=== PATIENT | female | born 1990 | race Caucasian/White ===

== ENCOUNTER 2017-06-26 15:59 | Emergency (ER) | payer MEDICAID ==
--- NOTE | 2017-06-26 16:43 | ER Document Report ---
HPI - HPI Pain Level: 3 Notes: Patient is a 26-year-old female with no significant past medical history presents ED complaining of urinary burning, urgency, frequency, and suprapubic pressure 2-3 days. Patient states that she did notice scant hematuria at the end of her urine stream on one occasion. Patient states that she is not worried about any STDs or osteitis at this time, nor she has an insert in place. Patient states that she has had UTIs in the past. She denies any drug allergies. She has not had any flank pain or radiating pain otherwise. Denies vaginal discharge, odor, bleeding, or cramping. Denies any headache, fever, URI, sore throat, chest pain, palpitations, syncope, cough, shortness of breath, wheeze, dyspnea, abdominal pain, nausea/vomiting/diarrhea, urinary retention, loss of control of bowel or bladder, back pain, numbness/ tingling, saddle anesthesia, muscle paralysis/weakness, or rash. - ROS Notes: REVIEW OF SYSTEMS: CONSTITUTIONAL : Denies fever, chills, or sweats. Denies recent illness. EENT: Denies eye, ear, throat, or mouth pain or symptoms. Denies nasal or sinus congestion or discharge. Denies throat, tongue, or mouth swelling or difficulty swallowing. CARDIOVASCULAR: Denies chest pain. Denies palpitations or racing or irregular heart beat. RESPIRATORY: Denies cough, cold, or chest congestion. Denies shortness of breath, difficulty breathing, or wheezing. GASTROINTESTINAL: Denies abdominal pain or distention. Denies nausea, vomiting , or diarrhea. Denies blood in vomitus, stools, or per rectum. Denies black, tarry stools. Denies constipation. GENITOURINARY: see hpi FEMALE GENITOURINARY: Denies vaginal bleeding, heavy or abnormal periods, irregular periods. Denies vaginal discharge or odor. MUSCULOSKELETAL: Denies back or neck pain or stiffness. Denies joint pain or swelling. SKIN: Denies rash, lesions or sores. NEUROLOGICAL: Denies confusion or altered mental status. Denies passing out or loss of consciousness. Denies dizziness or lightheadedness. Denies headache. Denies weakness or paralysis or loss of use of either side. Denies problems with gait or speech. Denies sensory loss, numbness, or tingling. Denies seizures. ALL OTHER SYSTEMS REVIEWED AND NEGATIVE. Dictation was performed using [employer] voice recognition software Past Medical History - Social History Smoking Status: Never Smoker Family History: Reviewed & Not Pertinent Vertical Provider Document - CONSTITUTIONAL Agree With Documented VS: Yes Notes: PHYSICAL EXAMINATION: GENERAL: Well-appearing, well-nourished and in no acute distress. A&Ox4 LUNGS: Breath sounds clear to auscultation bilaterally and equal. No wheezes rales or rhonchi. HEART: Regular rate and rhythm without murmurs, rubs, gallops. ABDOMEN: Soft, nontender, nondistended abdomen. No guarding, no rebound. No masses appreciated. Normal bowel sounds present. No CVA tenderness bilaterally. Musculoskeletal: FROM to passive/active. Strength 5+/5. Extremities: No cyanosis, clubbing, or edema b/l. Peripheral pulses 2+. Capillary refill less than 3 seconds. NEUROLOGICAL: Normal speech, normal gait. Normal sensory, motor exams PSYCH: Normal mood, normal affect. SKIN: Warm, Dry, normal turgor, no rashes or lesions noted. - RESPIRATORY O2 Sat by Pulse Oximetry: 99 Course - Re-evaluation Re-evalutation: 06/26/17 18:26 Patient is an afebrile, well-hydrated, 26-year-old female who presents the ED with a UTI. Vitals are stable. PE is otherwise unremarkable. Low suspicion for any acute abdomen, sepsis, meningitis, obstructing infected renal stone, or other systemic emergent condition at this time. See urinalysis results. Urine cultures pending. I will send her home with a prescription for Keflex to take as directed. Conservative measures for symptoms otherwise. Recheck with your PCM in 3-5 days. Return to the ED with any worsening/concerning symptoms otherwise as reviewed in discharge. Patient is in agreement. - Vital Signs Vital signs: Temp Pulse Resp BP Pulse Ox 98.7 F 88 16 118/54 L 99 06/26/17 16:21 06/26/17 16:21 06/26/17 16:21 06/26/17 16:21 06/26/17 16:21 Discharge - Discharge Clinical Impression: UTI (urinary tract infection) Qualifiers: Urinary tract infection type: site unspecified Hematuria presence: without hematuria Qualified Code(s): N39.0 - Urinary tract infection, site not specified Condition: Stable Disposition: HOME, SELF-CARE Instructions: Cephalexin ([facility]), Urinary Tract Infection ([facility]) Additional Instructions: Push fluids (i.e. water, cranberry juice) Proper hygenic technique Keep the skin clean Tylenol/ibuprofen as needed May use over the counter AZO for burning with urination Take medications as directed F/u with your PCM in 3-5 days for a recheck Consider consult with a Urologist for ongoing/worsening symptoms. Return to the ED with any worsening symptoms and/or development of fever, headache, chest pain, palpitations, syncope, shortness of breath, trouble breathing, abdominal pain, n/v/d, blood in stool/urine, loss of control of bowel /bladder, urinary retention, or other worsening symptoms that are concerning to you. Prescriptions: Cephalexin Monohydrate [Keflex 500 mg Capsule] 500 mg PO BID #14 capsule Referrals: [facility] [Provider Group] - Follow up as needed [facility] [Provider Group] - Follow up as needed
[2017-06-26 17:51] LABS: APPEARANCE,URINE CLEAR; BILIRUBIN,URINE NEGATIVE (NEGATIVE); GLUCOSE, URINE NEGATIVE (NEGATIVE); KETONES,URINE NEGATIVE (NEGATIVE); LEUKOCYTE ESTERASE,URINE TRACE (NEGATIVE); NITRITE,URINE POSITIVE (NEGATIVE); PROTEIN,URINE NEGATIVE (NEGATIVE); URINE SPECIFIC GRAVITY 1.009
[2017-06-26 18:44] VITALS: BP 127/65
== END 2017-06-26 18:44 | disposition home or self-care (01) ==
LOC: ER 15:59
DX: N39.0 Urinary tract infection, site not specified (principal)
CPT/HCPCS: 81001; 87086; 87088; 87186; 99283

== ENCOUNTER 2019-05-30 11:46 | Emergency (ER) | payer MEDICAID, OTHER ==
[2019-05-30] MEDS ORDERED: KETOROLAC TROMETHAMINE INJ/PF 30 MG/1 ML SDV IM ONE (12:17)
[2019-05-30] MEDS ORDERED: DEXAMETHASONE SOD PHOS INJ 10 MG/1 ML VIAL IM ONE (12:18)
--- NOTE | 2019-05-30 12:21 | ER Document Report ---
HPI - HPI Time Seen by Provider: 05/30/19 12:12 Pain Level: 4 Context: Patient is a 28-year-old female who presents to the emergency department with a chief complaint of sore throat. Patient reports her throat started to bother her on Thursday, 2 days ago. Patient reports that her son had similar symptoms which did improve over a few days. Patient reports bilateral ear pain and a productive cough with green sputum. Patient reports she did receive the flu vaccine last Thursday. Patient reports chills and a subjective fever but states she has not checked her temperature with a thermometer at home. Denies nausea, vomiting or diarrhea. Throat pain is worse when swallowing. - CONSTITUTIONAL Constitutional: REPORTS: Fever, Chills - EENT EENT: REPORTS: Sore Throat - REPRODUCTIVE Reproductive: DENIES: : Past Medical History - General Information source: Patient - Social History Smoking Status: Never Smoker Frequency of alcohol use: None Drug Abuse: None Lives with: Family Family History: Reviewed & Not Pertinent Patient has suicidal ideation: No Patient has homicidal ideation: No - Past Medical History Cardiac Medical History: Reports: None Pulmonary Medical History: Reports: None EENT Medical History: Reports: None Neurological Medical History: Reports: None Endocrine Medical History: Reports: None Renal/ Medical History: Reports: None. Denies: Hx Peritoneal Dialysis Malignancy Medical History: Reports: None GI Medical History: Reports: None Musculoskeletal Medical History: Reports None Skin Medical History: Reports None Psychiatric Medical History: Reports: None Traumatic Medical History: Reports: None Infectious Medical History: Reports: None Surgical Hx: Negative Past Surgical History: Reports: Hx Gynecologic Surgery - cyst removed from ovaries Vertical Provider Document - CONSTITUTIONAL Agree With Documented VS: Yes Exam Limitations: No Limitations General Appearance: No Apparent Distress - HEENT HEENT: Atraumatic, Normocephalic, PERRLA Notes: Patient has +1 erythematous tonsils bilaterally. There is exudate bilaterally. Uvula is midline. - NECK Neck: Normal Inspection - RESPIRATORY Respiratory: Breath Sounds Normal, No Respiratory Distress - CARDIOVASCULAR Cardiovascular: Regular Rate, Regular Rhythm - GI/ABDOMEN Gastrointestinal: Abdomen Soft, Abdomen Non-Tender, Normal Bowel Sounds - MUSCULOSKELETAL/EXTREMETIES Musculoskeletal/Extremeties: FROM - NEURO Level of Consciousness: Awake, Alert, Appropriate - DERM Integumentary: Warm, Dry, No Rash Course - Re-evaluation Re-evalutation: 05/30/19 12:20 Patient has not had anything for her throat discomfort today. Will give IM Decadron for her sore throat and inflammation of the tonsils as well as Toradol. Will check for strep. 05/30/19 13:37 I did discuss the results of the strep test with the patient. She states she would like the one-time injection of penicillin. 05/30/19 13:40 Care notes given to patient regarding Strep throat in uzbek. Patient does speak czech but primary language is uzbek. - Vital Signs Vital signs: Temp Pulse Resp BP Pulse Ox 99.7 F 108 H 18 117/56 L 98 05/30/19 11:58 05/30/19 11:58 05/30/19 11:58 05/30/19 11:58 05/30/19 11:58 - Laboratory Laboratory results interpreted by me: 05/30/19 13:37 Laboratory 05/30/19 12:15 Group A Strep Rapid POSITIVE Discharge - Discharge Clinical Impression: Strep pharyngitis Condition: Stable Disposition: HOME, SELF-CARE Additional Instructions: Today you are seen in emergency department for sore throat. You do have strep pharyngitis. If this is due to a bacteria. It does require an antibiotic. You have opted to get the one-time injection. You do not require oral antibiotics to go home with or a prescription. You should start to feel better in the next 2 to 3 days. Take Tylenol and ibuprofen as needed for pain or fever. Please sip frequent clear liquids. Strep Throat Your sore throat is due to the streptococcus germ (strep throat). Strep throat usually makes you feel quite ill with fever and aches, headache, swollen sore throat, and tender bumps under the angles of the jaw. Strep throat requires antibiotic treatment. Although the sore throat may go away by itself, complications such as rheumatic fever, kidney disease, or throat abscess can occur. We usually prescribe antibiotics by mouth. Be sure to take the medicine until it's gone. If you stop early, the strep may come back. If you are vomiting, are severely ill, or can't remember to take pills, we can give you an antibiotic shot. Take acetaminophen or ibuprofen for pain and fever. Sip frequent clear liquids, or use popsicles or ice chips. Anesthetic sprays or lozenges may help. Make sure the air in the room is not too dry. Avoid using decongestants or antihistamines. Call the doctor if there is no improvement in three days, or if you have difficulty breathing, increasing throat pain, high fever, rash, or frequent vomiting.
[2019-05-30] MEDS ORDERED: PENICILLIN G BENZATHINE 1.2 MILLION UNIT/2 ML DISP.SYRIN IM ONE (13:37)
[2019-05-30 14:17] VITALS: BP 99/54
== END 2019-05-30 14:15 | disposition home or self-care (01) ==
LOC: ER 11:46
DX: J02.0 Streptococcal pharyngitis (principal); H92.03 Otalgia, bilateral; R05 Cough; R50.9 Fever, unspecified
CPT/HCPCS: 87880; J1885; J0561; J1100; 96372; 99283

== ENCOUNTER 2019-09-13 16:04 | Emergency (ER) | payer OTHER ==
--- NOTE | 2019-09-13 17:02 | ER Document Report ---
ED Neck/Back Problem - General Chief Complaint: Back Pain Stated Complaint: LOW BACK PAIN Time Seen by Provider: 09/13/19 16:57 Notes: CHIEF COMPLAINT: Low back pain today HPI: 29-year-old female presenting to the emergency department complaining of low back pain and spasm today. Denies specific trauma but states that when she tries to straighten up she feels spasm in the low back. No incontinence of urine or bowel. No dysuria no fever no abdominal pain. No pelvic pain. Denies vaginal bleeding or discharge. ROS: See HPI - all other systems were reviewed and are otherwise negative Constitutional: no fever GI: no vomiting, no diarrhea, no abdominal pain : no dysuria Integumentary: no rash Allergy: no hives Musculoskeletal: no extremity pain or swelling, positive back pain Neurological: no numbness/tingling, no weakness MEDICATIONS: I agree with the patient medications as charted by the RN. ALLERGIES: I agree with the allergies as charted by the RN. PAST MEDICAL HISTORY/PAST SURGICAL HISTORY: Reviewed and agree as charted by RN. SOCIAL HISTORY: Reviewed and agree as charted by RN. FAMILY HISTORY: No significant familial comorbid conditions directly related to patient complaint EXAM: Reviewed vital signs as charted by RN. CONSTITUTIONAL: Alert and oriented and responds appropriately to questions. Well-appearing; well-nourished, mild distress secondary to pain HEAD: Normocephalic; atraumatic EYES: PERRL; Conjunctivae clear, sclerae non-icteric ENT: normal nose; no rhinorrhea; moist mucous membranes NECK: Supple without meningismus; non-tender; no cervical lymphadenopathy, no masses CARD: RRR; no murmurs, no clicks, no rubs, no gallops; symmetric distal pulses RESP: Normal chest excursion without splinting or tachypnea; breath sounds clear and equal bilaterally; no wheezes, no rhonchi, no rales ABD/GI: Normal bowel sounds; non-distended; soft, non-tender, no rebound, no guarding; no palpable organomegaly or masses. BACK: The back appears normal and is minimally tender to palpation across the lower lumbar back, there is no CVA tenderness EXT: Normal ROM in all joints; non-tender to palpation; no cyanosis, no effusions, no edema SKIN: Normal color for age and race; warm; dry; good turgor; no acute lesions noted NEURO: Moves all extremities equally; Motor and sensory function intact. Strength equal 5/5 bilateral lower extremities. Sensation intact and equal bilateral lower extremities. Straight leg raise is negative. No saddle anesthesia on exam. DTRs 2+ intact and equal bilateral lower extremities. PSYCH: The patient's mood and manner are appropriate. Grooming and personal hyg iene are appropriate. MDM: 29-year-old female with low back pain and spasm today. Has mildly reproducible back discomfort, no dysuria. Likely a muscular injury of some type. Will obtain urine and urine if negative anticipate discharge home on anti-inflammatories muscle relaxer, orthopedic follow-up. She has no abdominal or pelvic complaints today. 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 - Related Data Allergies/Adverse Reactions: No Known Allergies Allergy (Unverified 06/26/17 16:03) Past Medical History - Social History Smoking Status: Never Smoker Family History: Reviewed & Not Pertinent Renal/ Medical History: Denies: Hx Peritoneal Dialysis Past Surgical History: Reports: Hx Gynecologic Surgery - cyst removed from ovaries Physical Exam - Vital signs Vitals: Temp Pulse Resp BP Pulse Ox 98.2 F 74 16 123/61 100 09/13/19 16:32 09/13/19 16:32 09/13/19 16:32 09/13/19 16:32 09/13/19 16:32 Course - Re-evaluation Re-evalutation: 09/13/19 17:40 Urine does not show evidence of infection patient is not we will treat as a musculoskeletal injury at this time with return instructions - Vital Signs Vital signs: Temp Pulse Resp BP Pulse Ox 98.2 F 74 16 123/61 100 09/13/19 16:32 09/13/19 16:32 09/13/19 16:32 09/13/19 16:32 09/13/19 16:32 - Laboratory Laboratory results interpreted by me: 09/13/19 17:00 Urine Blood SMALL H Discharge - Discharge Clinical Impression: Low back pain Qualifiers: Chronicity: acute Back pain laterality: bilateral Sciatica presence: without sciatica Qualified Code(s): M54.5 - Low back pain Condition: Stable Disposition: HOME, SELF-CARE Additional Instructions: 1. Warm heat to the lower back twice daily 2. no heavy lifting for 2-3 days 3. medications as prescribed, no driving on muscle relaxers 4. follow up with orthopedics for further evaluation and treatment as needed for any continuing pain or problems, call for appt. 5. return to the ER for any onset of incontinence of urine, fever > 101 or worsening condition 1. Calienta la parte baja de la espalda dos veces al da 2. no levantar objetos pesados ciara 2-3 alba 3. medicamentos segn lo prescrito, no conducir en relajantes musculares 4. seguimiento con ortopedia para dayanara evaluacin y tratamiento adicionales, segn sea necesario para cualquier dolor o problema continuo, solicite malinda. 5. Regrese a la armando de emergencias por cualquier aparicin de incontinencia de orina, fiebre> 101 o empeoramiento de la condicin. Prescriptions: Cyclobenzaprine HCl [Flexeril 10 mg Tablet] 10 mg PO TIDP PRN #15 tab PRN Reason: Naproxen 500 mg PO BID PRN #14 tablet PRN Reason: Referrals: EMERALD SAMPSON MD [ACTIVE STAFF] - Follow up as needed
[2019-09-13 17:35] LABS: APPEARANCE,URINE CLEAR; BILIRUBIN,URINE NEGATIVE (NEGATIVE); COLOR,URINE YELLOW; GLUCOSE, URINE NEGATIVE (NEGATIVE); KETONES,URINE NEGATIVE (NEGATIVE); LEUKOCYTE ESTERASE,URINE NEGATIVE (NEGATIVE); NITRITE,URINE NEGATIVE (NEGATIVE); PROTEIN,URINE NEGATIVE (NEGATIVE); URINE SPECIFIC GRAVITY 1.019; UROBILINOGEN,URINE NEGATIVE mg/dL (<2.0)
[2019-09-13] MEDS ORDERED: NAPROXEN 250 MG TABLET PO ONE (17:41)
[2019-09-13 18:04] VITALS: BP 125/64
== END 2019-09-13 18:04 | disposition home or self-care (01) ==
LOC: ER 16:04
DX: M54.5 Low back pain (principal); M54.9 Dorsalgia, unspecified; M62.830 Muscle spasm of back
CPT/HCPCS: 81001; 81025; 99283

== ENCOUNTER → 2020-06-08 | Outpatient (CLI) | payer OTHER ==
--- NOTE | 2020-06-08 18:25 | RADIOLOGY REPORT (SQ) ---
EXAM DESCRIPTION: KNEE LEFT 3 VIEWS IMAGES COMPLETED DATE/TIME: 06/08/2020 4:52 pm REASON FOR STUDY: (M25.562)PAIN IN LEFT KNEE M25.562 PAIN IN LEFT KNEE COMPARISON: None. NUMBER OF VIEWS: Three views. TECHNIQUE: AP, lateral, and sunrise patella radiographic images acquired of the left knee. LIMITATIONS: None. FINDINGS: MINERALIZATION: Normal. BONES: No acute fracture or dislocation. No worrisome bone lesions. JOINT: No effusion. SOFT TISSUES: No soft tissue swelling. No radio-opaque foreign body. OTHER: No other significant finding. IMPRESSION: NEGATIVE STUDY OF THE LEFT KNEE. NO RADIOGRAPHIC EVIDENCE OF ACUTE INJURY. TECHNICAL DOCUMENTATION: JOB ID: [id number] 2010 [employer]- All Rights Reserved Reading location - IP/workstation name: [email or web address]
== END ==
LOC: RAD 16:37
PROVIDERS: ATTEND Nurse Practitioner Family
DX: M25.562 Pain in left knee (principal)